=== PATIENT | male | born 2000 | race Caucasian/White ===

== ENCOUNTER 2024-09-21 11:09 | Emergency (ER) | payer BC, SELFPAY ==
[2024-09-21 11:11] VITALS: BP 146/89
--- NOTE | 2024-09-21 12:32 | ED.GENMED ---
History of Present Illness
General
Chief Complaint: Abdominal Pain
Source: patient
Exam Limitations: none
Time Seen by Provider: 09/21/24 11:57
History of Present Illness
History of Present Illness:
24-year-old otherwise healthy male presents complaining of onset of abdominal pain this morning. The pain is made worse if he lays flat but better if he bends over. The pain is mainly to the mid abdomen occasionally on the right side. No flank
pain. No nausea vomiting or diarrhea. No fever. No urinary symptoms. No known injury. No other complaints
Phy Exam
Physical Exam
Physical Exam:
General: Well-appearing male no acute respiratory distress HEENT: Normocephalic atraumatic
Heart: Regular rate and rhythm no murmurs
Lungs: Clear no wheeze
Abdomen is soft tender to the right lower quadrant no guarding rebound normal bowel sounds nondistended
Extremities: No cyanosis
Course
Orders/Labs/Results
Orders:
Orders
09/21/24 12:24
Iohexol [Omnipaque] See Protocol PO NOW STA
09/21/24 12:25
CT Abd/pel W Iv And Oral Contr Urgent
Comment:
Reason For Exam: rlq pain
09/21/24 12:45
Complete Blood Count/With Diff Urgent
Comprehensive Metabolic Panel Urgent
Lyme Progressive Urgent
Comment: ADD ON
09/21/24 13:12
Add On- LAB Urgent
Tests Added?: lyme progressive
Abnormal Lab Results
09/21/24
12:45
Monocytes % 9.8 H %
(1.7-9.3)
Chloride 96 L mmol/L
(98-107)
Carbon Dioxide 31 H mmol/L
(22-30)
Glucose 103 H mg/dl
(70-99)
Calcium 10.5 H mg/dl
(8.4-10.2)
Albumin 5.2 H g/dl
(3.5-5.0)
09/21/24 12:45
09/21/24 12:45
Vital Signs
Initial and Last Documented VS:
Initial Vital Signs
Pulse Resp BP Pulse Ox
98 16 146/89 99
09/21/24 11:11 09/21/24 11:11 09/21/24 11:11 09/21/24 11:11
Last Documented Vital Signs
Pulse Resp BP Pulse Ox
98 16 146/89 99
09/21/24 11:11 09/21/24 12:54 09/21/24 11:11 09/21/24 11:11
MDM/Problems Addressed
Differential Diagnosis Includes:
Abdominal pain mostly right lower tenderness on exam. Consider acute appendicitis risk constipation versus mesenteric adenitis versus musculoskeletal type of pain
Check labs. CT with oral and IV contrast pending
*Critical Care Note
Total Time (30-74mins, 75-104mins- exclusive of procedures): Not Applicable
Update Note
Update Note:
CT shows no signs of appendicitis. There is no inflammatory stranding. A normal appendix was visualized. No other acute findings noted. Patient reassessed still with some discomfort but is comfortable going home. Declined any medicines here.
Recommended ibuprofen or Tylenol. Labs reviewed white count normal. Return precautions were given.
ED Attending Note
-
Portions of this chart may have been created with voice recognition software.� Occasional wrong word or��sound alike� substitutions may have occurred due to the inherent limitations of voice recognition software.
Discharge Plan
Departure
Patient Disposition: Home (Routine Discharge)
Date of Disposition: 09/21/24
Time of Disposition: 16:06
Patient with high blood pressure during this ER visit?: No
Discharge Problem:
Abdominal pain
Instructions: Abdominal Pain
Prescriptions:
New
ibuprofen 600 mg tablet
600 mg PO Q8H PRN (Reason: Pain) Qty: 10 0RF
Referrals:
Gloria Ngo MD [Family Provider] -
Activity Restrictions/Additional Instructions:
Use ibuprofen if needed for pain. Return here for increasing pain vomiting fever or other concerning finding. Follow-up with family doctor otherwise if needed
Interventions
Interventions:
*Risk Screen - Suicide Last Done: 09/21/24 11:11
*General Assessment Last Done: 09/21/24 11:11
*Neglect/Abuse Screening Last Done: 09/21/24 12:54
*ED COVID-19 Vaccine History Last Done: 09/21/24 11:11
QI-Quwdev-Tfapbpebjq Assessment Last Done: 09/21/24 12:54
Discharge Date and Time
Print Language: POLISH
[2024-09-21] MEDS: OMNIPAQUE 50 ML PO (12:37)
[2024-09-21 12:52] LABS: % Basophils 0.7 % (0-2); % Eosinophils 0.5 % (0-6); % Immature Granulocytes 0.2 % (0-0.5); % Lymphocytes 30.1 % (20.5-51.1); % Monocytes 9.8 % (1.7-9.3); % Neutrophils 58.7 % (42.2-75.2); Absolute Lymphocytes 1.8 10^3/uL (1.2-3.4); Absolute Monocytes 0.6 10^3/uL (0.1-0.6); Absolute Neutrophils 3.5 10^3/uL (1.4-6.5); Hematocrit 46.7 % (39.0-52.0); Hemoglobin 16.2 g/dL (13.0-18.0); Mean Corp Hgb Conc. 34.7 g/dL (33.0-37.0); Mean Corpuscular Hgb 29.6 pg (27.0-31.0); Mean Corpuscular Volume 85.4 fL (80.0-94.0); Mean Platelet Volume 9.5 fL (7.4-10.4); Nucleated Red Blood Cells % 0 % (-); Platelet Count 250 10^3/uL (130-400); Red Blood Cell Count 5.47 10^6/uL (4.70-6.10); Red Cell Dist. Width 11.9 % (11.5-14.5); White Blood Cell Count 5.9 10^3/uL (4.8-10.8)
[2024-09-21 13:07] LABS: ALT (SGPT) 22 U/L (0-50); AST (SGOT) 33 U/L (17-59); Albumin 5.2 g/dl (3.5-5.0); Alkaline Phosphatase 46 U/L (38-126); Blood Urea Nitrogen 14 mg/dl (9-20); Calcium 10.5 mg/dl (8.4-10.2); Carbon Dioxide 31 mmol/L (22-30); Chloride 96 mmol/L (98-107); Glucose 103 mg/dl (70-99); Potassium 4.5 mmol/L (3.5-5.1); Sodium 137 mmol/L (135-145); Total Bilirubin 1.2 mg/dl (0.2-1.3); Total Protein 7.9 g/dl (6.3-8.2); eGFR > 60.00
[2024-09-22 11:15] LABS: Lyme Antibody Screen, EIA Negative (Negative)
== END 2024-09-21 16:57 | disposition home or self-care (01) ==
LOC: EMR 11:09
PROVIDERS: Physician Assistant; EMERGENCY PHYSICIAN Emergency Medicine; FAMILY PHYSICIAN Family Medicine
DX: R10.31 Right lower quadrant pain (principal)
CPT/HCPCS: 99284; 74177; 80053; 85025; 86618; Q9967